=== PATIENT | female | born 1990 | race Caucasian/White ===

== ENCOUNTER 2021-11-03 01:40 | Inpatient (IN) | payer MEDICARE, MEDICAID ==
[~2021-11-03] VITALS: Ht 162.6 cm; Wt 49.2 kg
[~2021-11-03 01:40] MED LIST: AMIT10TA7 GT; CALC-881 PO; DILTIAZEM 360 MG PO; FOLI-43 PO; FUROSEMIDE 20 MG; HYDR200T80 PO; INSLAN SQ; LEVO25TA7 PO; LOSA100T32 PO; OMEP20CA4 PO; P20 PO; SULF1TAB48 PO; WARF2.5T83 PO
[2021-11-03] MEDS ORDERED: HALOPERIDOL LACTATE 5MG/ML VIAL IM ONE (03:00)
[2021-11-03] MEDS ORDERED: LORAZEPAM 2MG/ML CPJ IM ONE (03:00)
[2021-11-03 03:16] LABS: BASOPHILS % 1.2 % (0.0-2.0); EOSINOPHILS % 5.8 % (0.0-5.0); HEMATOCRIT. 27.4 % (36.0-48.0); HEMOGLOBIN. 8.9 g/dL (12.0-16.0); LYMPHOCYTES % 16.5 % (20.0-50.0); MEAN CORPUSCULAR HEMOGLOBIN 28.8 pg (28.0-32.0); MEAN CORPUSCULAR VOLUME 88.8 fL (81.0-99.0); MEAN PLATELET VOLUME 7.3 fl (7.4-10.4); MONOCYTES % 10.8 % (2.0-8.0); NEUTROPHILS % 65.7 % (40.0-76.0); PLATELET 344 x1000/uL (130-400); RED BLOOD CELL COUNT 3.09 mill/uL (4.2-5.4)
[2021-11-03 03:25] LABS: CHLORIDE 105 mEq/L (98-107)
[2021-11-03 03:32] LABS: ETHANOL BLOOD < 10 mg/dL
[2021-11-03 03:35] LABS: HCG SCREEN NEGATIVE
[2021-11-03 04:27] LABS: CLARITY URINE TURBID (CLEAR); COLOR URINE YELLOW (YELLOW); KETONES URINE NEGATIVE (NEGATIVE); LEUKOCYTE ESTERASE URINE 3+ (NEGATIVE); NITRITE URINE NEGATIVE (NEGATIVE); OCCULT BLOOD URINE 2+ (NEGATIVE); PROTEIN URINE 3+ (NEGATIVE); SPECIFIC GRAVITY URINE 1.014 (1.005-1.030); UROBILINOGEN URINE 0.2 E.U./dL (0.2-1.0)
[2021-11-03] MEDS ORDERED: LORAZEPAM 2MG/ML CPJ IV ONE (04:30)
[2021-11-03] MEDS ORDERED: PIPERACILLIN/TAZ 3.375G PREMIX 50 ML IV NR (04:30)
[2021-11-03] MEDS ORDERED: VANCOMYCIN 1G PREMIX 200 ML IV NR (04:30)
[2021-11-03 05:08] LABS: *BARBITURATES SCREEN URINE NEGATIVE (NEGATIVE); *BENZODIAZEPINES SCREEN URINE NEGATIVE (NEGATIVE)
[2021-11-03 05:09] LABS: *COCAINE SCREEN URINE NEGATIVE (NEGATIVE); CANNABINOID URINE SCREEN NEGATIVE (NEGATIVE); METHADONE URINE SCREEN NEGATIVE (NEGATIVE); OPIATES URINE SCREEN NEGATIVE (NEGATIVE); PHENCYCLIDINE URINE SCREEN NEGATIVE (NEGATIVE)
[2021-11-03 05:31] LABS: *AMPHETAMINES SCREEN URINE PRESUMTIVE POSITIVE (NEGATIVE)
[2021-11-03] MEDS ORDERED: ENOXAPARIN 60MG/0.6ML SYR SUBCUT SCH (06:30)
[2021-11-03] MEDS ORDERED: ASPIRIN 325MG EC TABLET PO ONE (06:30)
[2021-11-03] MEDS ORDERED: ONDANSETRON HCL 4MG/2ML INJ IV PRN (09:30)
[2021-11-03] MEDS ORDERED: SODIUM POLYSTYRENE SULFONATE 15 G/60 ML BOT PO NR (09:30)
[2021-11-03] MEDS ORDERED: AMLODIPINE 10MG TABLET PO NR (09:30)
[2021-11-03] MEDS ORDERED: HYDRALAZINE 20MG/ML VIAL IV SCH (10:00)
[2021-11-03] MEDS ORDERED: CEFTRIAXONE 1 G PREMIX 50 ML IV SCH (10:00)
[2021-11-03] MEDS ORDERED: INSULIN REGULAR (HUMULIN R) 300UNITS/3ML VIAL IV NR (10:45)
[2021-11-03] MEDS ORDERED: DEXTROSE 50% WATER 50ML SYRINGE IV NR (10:45)
[2021-11-03] MEDS ORDERED: SODIUM BICARBONATE 8.4% 1 MEQ/ML 50ML SYR IV NR (11:15)
[2021-11-03] MEDS ORDERED: CALCIUM GLUCONATE 1GM PREMIX 50 ML IV NR (11:15)
[2021-11-03] MEDS: LORAZEPAM 2MG/ML CPJ IV PRN ×2 (12:17→16:43)
[2021-11-03 16:46] LABS: HEPATITIS B SURFACE ANTIGEN NEGATIVE
[2021-11-04] VITALS: BP 129/89
[2021-11-04 01:21] VITALS: BP 129/89
[2021-11-04 04:00] VITALS: BP 131/86
[2021-11-04] MEDS ORDERED: DOCU-150 PO (05:34)
[2021-11-04] MEDS ORDERED: ASPI-1406 PO (05:42)
[2021-11-04] MEDS ORDERED: APIX5TAB4 PO (05:42)
[2021-11-04] MEDS ORDERED: PANT40TA51 PO (05:42)
[2021-11-04] MEDS ORDERED: CARV12.545 PO (05:42)
[2021-11-04] MEDS ORDERED: HYDR200T35 PO (05:42)
[2021-11-04] MEDS ORDERED: ATOR40TA70 PO (05:42)
[2021-11-04] MEDS ORDERED: NIFE30TA94 PO (05:42)
[2021-11-04] MEDS ORDERED: SENN-257 PO (05:42)
[2021-11-04] MEDS ORDERED: LISI-186 PO (05:42)
[2021-11-04] MEDS ORDERED: NEPVIT PO (05:42)
[2021-11-04] MEDS ORDERED: ACET-2502 PO (05:42)
[2021-11-04] MEDS ORDERED: HYDR2TAB7 PO (05:42)
[2021-11-04] MEDS ORDERED: WARF-67 PO (05:42)
[2021-11-04] MEDS ORDERED: LABE200T9 PO (05:42)
[2021-11-04] MEDS ORDERED: GABA-529 PO (05:42)
[2021-11-04] MEDS ORDERED: LEVOTHYROXINE SODIUM 50MCG TABLET PO SCH (07:20)
[2021-11-04 07:30] VITALS: BP 160/104
[2021-11-04] MEDS: CEFTRIAXONE 1,000 MG in DEXTROSE 5% WATER 50 ML IV SCH ×2 (09:00→10:07)
[2021-11-04] MEDS: AMLODIPINE 10MG TABLET PO SCH ×2 (09:00→10:08)
[2021-11-04] MEDS: HYDRALAZINE HCL 50MG TABLET PO SCH ×2 (09:30→10:08)
[2021-11-04] MEDS ORDERED: ACETAMINOPHEN 325MG TABLET PO PRN (09:45)
== END 2021-11-04 11:47 | disposition left against medical advice (07) | DRG 871 ==
LOC: ER 01:40 → 6WST 06:22 → EDBEDREQTM 07:03 → EDBEDREQ 07:03 → EDBEDREQSVC 17:24 → ENRESERV 20:25
PROVIDERS: ADMIT Internal Medicine; ATTEND Internal Medicine
PROC: 5A1D70Z Performance of Urinary Filtration, Intermittent, Less than 6 Hours Per Day (ICD-10-PCS; principal; 2021-11-03)
PROC: 5A1D70Z Performance of Urinary Filtration, Intermittent, Less than 6 Hours Per Day (ICD-10-PCS; 2021-11-04)
DX: A41.9 Sepsis, unspecified organism (principal); G92.9 Unspecified toxic encephalopathy; E43 Unspecified severe protein-calorie malnutrition; N18.6 End stage renal disease; I21.4 Non-ST elevation (NSTEMI) myocardial infarction; E87.1 Hypo-osmolality and hyponatremia; I12.0 Hypertensive chronic kidney disease with stage 5 chronic kidney disease or end stage renal disease; N39.0 Urinary tract infection, site not specified; D64.9 Anemia, unspecified; E03.9 Hypothyroidism, unspecified; F19.10 Other psychoactive substance abuse, uncomplicated; Z53.29 Procedure and treatment not carried out because of patient's decision for other reasons; E87.5 Hyperkalemia; F15.90 Other stimulant use, unspecified, uncomplicated; I16.0 Hypertensive urgency; Z91.15 Patient's noncompliance with renal dialysis; Z99.2 Dependence on renal dialysis; Z71.51 Drug abuse counseling and surveillance of drug abuser
CPT/HCPCS: 36415; 71045; 80053; 80305; 80307; 80320; 80329; 81003; 82962; 83605; 83880; 84145; 84443; 84484; 84703; 85025; 86140; 86705; 86709; 86803; 87340; 93005; 99291; J0360; J0610; J0696; J1630; J1650; J1815; J2060; J2543; J3370; J3490; J7060; G0480